=== PATIENT | male | born 1940 | race Caucasian/White ===

== ENCOUNTER 2022-04-27 06:40 | Day surgery (SDC) | payer OTHER ==
[~2022-04-27] VITALS: Ht 180.3 cm; Wt 80.1 kg
[~2022-04-27 06:40] MED LIST: GINKGO60 MG PO; LISI20 PO; MULVITA PO; OMEGA 3 PO
--- NOTE | 2022-04-27 07:30 | NUR ---
Ambulatory in Day Surgery History, Chart, Medications and Allergies reviewed before start of procedure. Pre-Op teaching done. Pt verbalizes understanding. Patient States Post-Procedure ride home has been arranged.
--- NOTE | 2022-04-27 08:20 | NUR ---
04/27/22 0820 Gretchen Barksdale REDDENED AREA NOTED TO LEFT UPPER GROIN FROM PRIOR CLIPPING OF HAIR
--- NOTE | 2022-04-27 10:29 | NUR ---
DRG TO LEFT GROIN C/D/I WITH GAUZE AND CLEAR DRG ON, ICE APPLIED IN STEP DOWN. NORCO GIVEN X1, RX GIVEN TO PT TO TAKE TO BE FILLED AT OR. Discharge instructions reviewed with patient. Patient verbalizes understanding. Copy given to patient to take home. PT TOLERATED CRACKERS AND COFFEE WELL, DENIES PAIN, DRESSED AND Discharged via wheelchair to private car for ride home.
== END 2022-04-27 10:20 | disposition home or self-care (01) ==
LOC: ORSCMMR 06:40 → ORD 07:30 → ORSCMMR 07:30
PROVIDERS: Surgery
PROC: 3E0M05Z Introduction of Adhesion Barrier into Peritoneal Cavity, Open Approach (ICD-10-PCS; principal; 2022-04-27 08:00)
PROC: 0YU60JZ Supplement Left Inguinal Region with Synthetic Substitute, Open Approach (ICD-10-PCS; principal; 2022-04-27 08:00)
DX: K40.90 Unilateral inguinal hernia, without obstruction or gangrene, not specified as recurrent (principal); I10 Essential (primary) hypertension; F17.210 Nicotine dependence, cigarettes, uncomplicated; Z79.899 Other long term (current) drug therapy
CPT/HCPCS: 93005; 93010; A9270; C1781; J0690; J1100; J1170; J2370; J2405; J2704; J2795; J3010; J7120

== ENCOUNTER 2023-08-06 16:50 | Emergency (ER) | payer OTHER ==
[~2023-08-06] VITALS: Ht 180.3 cm; Wt 72.1 kg
[2023-08-06 16:58] VITALS: BP 111/57
== END 2023-08-06 19:44 | disposition home or self-care (01) ==
LOC: ER 16:50
DX: L02.31 Cutaneous abscess of buttock (principal); Z79.899 Other long term (current) drug therapy; I10 Essential (primary) hypertension
CPT/HCPCS: 10060; 99282-25

== ENCOUNTER 2023-08-10 10:32 | Emergency (ER) | payer OTHER ==
[~2023-08-10] VITALS: Ht 177.8 cm; Wt 72.1 kg
[2023-08-10 10:43] VITALS: BP 128/75
== END 2023-08-10 10:59 | disposition home or self-care (01) ==
LOC: ER 10:32
DX: Z48.817 Encounter for surgical aftercare following surgery on the skin and subcutaneous tissue (principal); I10 Essential (primary) hypertension; Z79.899 Other long term (current) drug therapy
CPT/HCPCS: 99282